=== PATIENT | female | born 1975 | race Caucasian/White ===

== ENCOUNTER → 2021-12-08 | Outpatient (CLI) | payer BC, MEDICARE | LOC: HEART 5 10:22 → EXRD 10:22 | DX: R06.02 Shortness of breath (principal); J45.909 Unspecified asthma, uncomplicated; S22.43XD Multiple fractures of ribs, bilateral, subsequent encounter for fracture with routine healing | CPT/HCPCS: 71046; 94060; 94729; 95012 ==